=== PATIENT | female | born 1935 | race Caucasian/White ===

== ENCOUNTER 2020-03-12 07:34 | Day surgery (SDC) | payer MEDICARE, BC ==
[~2020-03-12 07:34] MED LIST: Lactated Ringers 1,000 ML IV SCH; Lidocaine 1%/Sod Bicarbonate in NS 8.4% 1 ML Syringe IDERM PRN; Sodium Chloride 0.9% 10 ML Syringe FLUSH PRN
[2020-03-12] MEDS ORDERED: Bupivacaine 0.25% 10 ML SDV ONE (09:54)
[2020-03-12] MEDS ORDERED: fentaNYL 100 MCG/2 ML SDV ONE (10:29)
[2020-03-12] MEDS ORDERED: Propofol 200 MG/20 ML SDV ONE (10:29)
[2020-03-12] MEDS ORDERED: Midazolam 1 MG/ML 2 ML SDV ONE (10:30)
[2020-03-12] MEDS ORDERED: Ketamine 500 mg/10 ML MDV ONE (10:30)
[2020-03-12] MEDS ORDERED: Lidocaine 1% 4 ML ONE (10:31)
[2020-03-12] MEDS ORDERED: ceFAZolin 1 GM Vial ONE (10:33)
[2020-03-12] MEDS ORDERED: Lidocaine 1% 30 ML SDV ONE (11:08)
--- NOTE | 2020-03-12 12:09 | PCM.PREANE ---
Preanesthetic Assessment - Procedure Proposed Procedure: Left Elbow Olecranon Bursectomy - Anesthesia/Transfusion/Family Hx Anesthesia History: Prior Anesthesia Without Reaction Family History of Anesthesia Reaction: No - Review of Systems General: No Symptoms Pulmonary: Shortness of Breath (Chronic SOB, lives at home able to perform daily activites. COPD. [place] this way for years. ) Cardiovascular: Dyspnea on Exertion (With extended activity. Moderate/Severe Aortic Stenosis, EF 50%. ) Gastrointestinal: No Symptoms Neurological: No Symptoms, Numbness, Tingling (Neuropathy) Other: Reports: Diabetes (Blood Glucose 154 at 0823) - Physical Assessment NPO Status Date: 03/11/20 NPO Status Time: 17:45 Vital Signs: Last Vital Signs Temp 36.2 C 03/12/20 11:52 Pulse 82 03/12/20 11:52 Resp 16 03/12/20 11:52 BP 121/68 03/12/20 11:52 Pulse Ox 97 03/12/20 11:52 Height: 1.68 m Weight: 74.843 kg ASA Class: 3 Mental Status: Alert & Oriented x3 Airway Class: Mallampati = 2 Dentition: Reports: Missing Tooth/Teeth ([place] lower incisor) Thyro-Mental Finger Breadths: 3 Mouth Opening Finger Breadths: 3 ROM/Head Extension: Full Lungs: Clear to Auscultation, Normal Respiratory Effort, Decreased Breath Sounds Cardiovascular: Regular Rhythm, Irregular Rhythm, Murmurs - Lab Values: Laboratory Last Values POC Glucose 124 mg/dL (83-110) H 03/12/20 10:29 COVID-19 PCR Not detected (NOT DETECT) 03/10/20 11:45 MRSA (PCR) Negative 03/10/20 11:42 - Allergies Allergies/Adverse Reactions: Allergies Allergy/AdvReac Type Severity Reaction Status Date / Time Sulfa (Sulfonamide Allergy Rash Verified 03/11/20 14:06 Antibiotics) - Anesthesia Plan Beta Annamarie: Atenolol Med Last Dose Date: 03/12/20 Med Last Dose Time: 06:20 - Acknowledgements Anesthesia Type Planned: MAC Pt an Appropriate Candidate for the Planned Anesthesia: Yes Alternatives and Risks of Anesthesia Discussed w Pt/Guardian: Yes Pt/Guardian Understands and Agrees with Anesthesia Plan: Yes PreAnesthesia Questionnaire HEENT History: Reports: Impaired Vision, Macular Degeneration Cardiovascular History: Reports: Afib, Heart Failure, Heart Murmur, High Cholesterol, Hypertension, Other (See Below) Other Cardiovascular History: carotid bruit, aortic stenosis, mitral insufficiency Respiratory History: Reports: Sleep Apnea, SOB Gastrointestinal History: Reports: Chronic Diarrhea Genitourinary History: Reports: None ELEVATORS INSPECTOR History: Reports: Other (See Below) Other OB/BYN History: vaginal candidia Musculoskeletal History: Reports: Other (See Below) Other Musculoskeletal History: olecranon bursitis, back pain, bilateral pes planus, left foot ulcer, left toe pain, left ankle fracture with hardware Neurological History: Reports: Neuropathy, Peripheral Psychiatric History: Reports: Other (See Below) Other Psychiatric History: insomnia Endocrine/Metabolic History: Reports: Diabetes, Type II, Hypothyroidism, Vitamin D Deficiency, Other (See Below) Other Endocrine/Metabolic History: parotid gland enlargement Hematologic History: Reports: Anemia, Other (See Below) Other Hematologic History: hypokalemia, hyponatremia, hyperkalemia Immunologic History: Reports: None Oncologic (Cancer) History: Reports: None Dermatologic History: Reports: Other (See Below) Other Dermatologic History: corn/callous, onchomycosis - Past Surgical History Head Surgeries/Procedures: Reports: None Respiratory Surgical History: Reports: None GI Surgical History: Reports: None Female Surgical History: Reports: None Male Surgical History: Reports: None Endocrine Surgical History: Reports: None Neurological Surgical History: Reports: None Musculoskeletal Surgical History: Reports: None Oncologic Surgical History: Reports: None Dermatological Surgical History: Reports: None - SUBSTANCE USE Smoking Status *Q: Former Smoker Recreational Drug Use History: No - HOME MEDS Home Medications: Home Meds Ascorbic Acid [Vitamin C] 2,000 mg PO DAILY 03/11/20 [History] Aspirin 81 mg PO DAILY 03/11/20 [History] Cholecalciferol (Vitamin D3) [Vitamin D3] 1,000 unit PO DAILY 03/11/20 [History] Fenofibrate 160 mg PO DAILY 03/11/20 [History] Furosemide [Lasix] 80 mg PO TID 03/11/20 [History] Glimepiride 2 mg PO DAILY 03/11/20 [History] Insulin Glarg,Human.Rec.Analog [Lantus Solostar] 12 units SQ 1200 03/11/20 [History] Levothyroxine Sodium [Levoxyl] 112 mcg PO DAILY 03/11/20 [History] Melatonin 5 mg PO BEDTIME 03/11/20 [History] Potassium Chloride [Klor-Con M20] 20 meq PO BID 03/11/20 [History] Vit A/C/E AC/Znox/Cupric Oxide [Eye Vitamin-Minerals Tablet] 1 tab PO DAILY 03/11/20 [History] atenoloL [Atenolol] 25 mg PO BID 03/11/20 [History] atorvaSTATin [Lipitor] 10 mg PO BEDTIME 03/11/20 [History] clonazePAM [Clonazepam] 0.5 mg PO BEDTIME PRN 03/11/20 [History] metFORMIN HCl [Metformin HCl] 1,000 mg PO BID 03/11/20 [History] Acetaminophen/HYDROcodone [[place] 325-5 MG] 0.5 - 1 tab PO Q6H PRN #12 tablet 03/12/20 [Rx] - CURRENT (IN HOUSE) MEDS Current Meds: Current Medications Lactated Ringer's (Ringers, Lactated) 1,000 mls @ 125 mls/hr IV ASDIRECTED TORRIE Stop: 03/12/20 23:00 Last Admin: 03/12/20 08:23 Dose: 125 mls/hr Documented by: Lidocaine/Sodium Bicarbonate (Buffered Lidocaine 1% In Ns 8.4%) 0.25 ml IDERM ONETIME PRN PRN Reason: Prior to IV Start Stop: 03/12/20 18:00 Last Admin: 03/12/20 08:23 Dose: 0.25 ml Documented by: Sodium Chloride (Saline Flush) 10 ml FLUSH ASDIRECTED PRN PRN Reason: Keep Vein Open Stop: 03/12/20 18:00 Discontinued Medications Bupivacaine HCl (Sensorcaine-Mpf 0.25%) Confirm Administered Dose 30 ml .ROUTE .STK-MED ONE Stop: 03/12/20 09:55 Cefazolin Sodium (Ancef) Confirm Administered Dose 2 gm .ROUTE .STK-MED ONE Stop: 03/12/20 10:34 Fentanyl (Sublimaze) Confirm Administered Dose 100 mcg .ROUTE .STK-MED ONE Stop: 03/12/20 10:30 Lidocaine HCl (Xylocaine-Mpf 1%) Confirm Administered Dose 4 mls @ as directed .ROUTE .STK-MED ONE Stop: 03/12/20 10:32 Ketamine HCl (Ketalar) Confirm Administered Dose 500 mg .ROUTE .STK-MED ONE Stop: 03/12/20 10:31 Lidocaine HCl (Xylocaine-Mpf 1%) Confirm Administered Dose 30 ml .ROUTE .STK-MED ONE Stop: 03/12/20 11:09 Midazolam HCl (Versed 1 Mg/Ml) Confirm Administered Dose 2 mg .ROUTE .STK-MED ONE Stop: 03/12/20 10:31 Propofol (Diprivan 20 Ml) Confirm Administered Dose 200 mg .ROUTE .STK-MED ONE Stop: 03/12/20 10:30
--- NOTE | 2020-03-18 13:17 | PCM.OPNOTE ---
- General Post-Op/Procedure Note Date of Surgery/Procedure: 03/12/20 Operative Procedure(s): left olecranon bursectomy Pre Op Diagnosis: left olecranon bursitis Post-Op Diagnosis: Same Anesthesia Technique: Local, MAC Primary Surgeon: Ed Quiroz Anesthesia Provider: May Farrell Student Advisor: Flower Recinos EBL in mLs: 5 Complications: None Condition: Good
--- NOTE | 2020-03-18 14:10 | OR ---
DATE OF OPERATION: 03/12/2020 SURGEON: Ed Quiroz MD OPERATION PERFORMED: Left olecranon bursectomy. PREOPERATIVE DIAGNOSIS: Left olecranon bursitis. POSTOPERATIVE DIAGNOSIS: Left olecranon bursitis. ANESTHESIA: Local MAC. ANESTHESIA PROVIDER: Demetrice Watters. FIELD ADMINISTRATIVE ASSISTANT: Flower Recinos PA-C ESTIMATED BLOOD LOSS: 5 mL. COMPLICATIONS: None. CONDITION: Stable. DESCRIPTION OF PROCEDURE: The patient was identified in the preoperative holding area. Proper site was marked, identified by the surgeon. The patient was taken back to the operating theater after adequate anesthesia, the patient's left upper extremity was sterilely prepped and draped in the usual sterile fashion. OR time-out was performed. The patient received 2 g IV Ancef before this. A nonsterile tourniquet had been applied. Left upper extremity was then exsanguinated. Tourniquet was insufflated to 220 mmHg. A standard incision was marked. 0.25% Marcaine and 1% lidocaine mixed were used to anesthetize the incisional site in the bursa. At this time, an incision was made. This was taken down to the bursa. The patient was noted to have a loculated bursa. There were no signs of infection or purulence. In whole, the bursa and the bursal tissue was then resected making sure to have adequate soft tissue coverage and we did also rongeur off a small phyte that was noted on the posterior spur of the olecranon. At this time, adequate saline was irrigated through the wound. 3-0 Vicryl was used subcutaneously and yamileth were used for closure of the skin. The patient had a sterile soft dressing applied and was sent to the PACU in stable condition. MMODAL /[id number]
== END 2020-03-12 12:30 | disposition home or self-care (01) ==
LOC: JD.SDS 07:34
PROVIDERS: ATTEND Orthopaedic Surgery
DX: M70.22 Olecranon bursitis, left elbow (principal); E78.00 Pure hypercholesterolemia, unspecified; I11.0 Hypertensive heart disease with heart failure; I50.9 Heart failure, unspecified; J44.9 Chronic obstructive pulmonary disease, unspecified; G47.30 Sleep apnea, unspecified; E11.9 Type 2 diabetes mellitus without complications; E03.9 Hypothyroidism, unspecified; Z87.891 Personal history of nicotine dependence; Z79.82 Long term (current) use of aspirin; Z88.2 Allergy status to sulfonamides; Z79.899 Other long term (current) drug therapy; Z79.890 Hormone replacement therapy; Z11.59 Encounter for screening for other viral diseases
CPT/HCPCS: 24105; 82962; 87641; 93005; J0690; J2001; J2250; J2704; J3010; J3490; J7120; U0002; 01710